=== PATIENT | male | born 1985 | race Caucasian/White ===

== ENCOUNTER 2020-12-09 17:09 | Emergency (ER) | payer SELFPAY ==
--- OUTSIDE RECORDS SUMMARY | 2020-12-09 17:13 | XMS REPORT | Continuity of Care Document ---
:1985 Author Organization [facility] t Address [address] [place] [address] Care Team Providers Name Role Phone Jarvis Ornelas Attending Clinician Olivia Lutz Attending Clinician Problems This patient has no known problems. Allergies, Adverse Reactions, Alerts This patient has no known allergies or adverse reactions. Medications This patient has no known medications. Procedures This patient has no known procedures. Encounters Start End Encounter Admission Attending Care Care Encounter Source Date/Time Date/Time Type Type Clinicians Facility Department ID 2020-12-04 2020-12-04 Emergency Jessica [facility] [id number] 13:39:00 16:03:00 Jose Turner [id number] [place] [id number] [place] [id number] 2020-06-23 2020-06-24 Emergency Kiesha Dunham [facility] [id number] 18:25:00 06:20:00 Olivia Turner [id number] [place] [id number] [place] [phone] [id number] Results This patient has no known results.
--- NOTE | 2020-12-09 18:31 | RAD REPORT ---
EXAM DESCRIPTION: RAD - Wrist Left 3 View - 12/09/2020 5:50 pm CLINICAL HISTORY: PAIN, wrist pain COMPARISON: No comparisons FINDINGS: Distal radius fracture is present. This coronal oblique fracture plane involves the radial styloid and articular surface. The ventral aspect of the fracture fragment is displaced ventrally 6 mm. No ulna fracture. Carpal bones are normally positioned without fracture. Soft tissue swelling is present around the wrist joint. No periosteal reaction. No pathologic change. No foreign body identif ied. IMPRESSION: Distal left radius fracture as detailed with 6 mm displacement of the ventral fracture f ragment.
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
[2020-12-09 21:06] VITALS: BP 142/108; TEMP 99; O2SAT 98
== END 2020-12-09 20:20 | disposition left against medical advice (07) ==
LOC: ER 17:09
DX: Z53.21 Procedure and treatment not carried out due to patient leaving prior to being seen by health care provider (principal)
CPT/HCPCS: 99282

== ENCOUNTER 2022-07-15 04:51 | Emergency (ER) | payer SELFPAY ==
--- OUTSIDE RECORDS SUMMARY | 2022-07-15 04:55 | XMS REPORT | Continuity of Care Document ---
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 Value Reference Range Interpretation Comments ALCOHOL (test code = <10 mg/dL 9431987510) LUDMILA (test code = LUDMILA) <10 Tqzlfvff75-129 Toxic>100 Depression of ANTHROPOLOGY PROFESSOR>400 Fatalities Reported [facility] CenterCREATINE [id number] 02:26:00 Test Item Value Reference Range Interpretation Comments CK (test code = 4970603226) 979 U/L 33-194 H Lab Interpretation (test code = Abnormal 77962-4) [facility] CenterCOMP. METABOLIC PANEL (20423)2020-06-24 02:18:00 Test Item Value Reference Range Interpretation Comments NA (test code = 138 mmol/L 135-145 5942268818) K (test code = 3.6 mmol/L 3.5-5 8828563543) CL (test code = 104 mmol/L 98-108 3417880631) CO2 TOTAL (test code = 23 mmol/L 23-31 5393997176) AGAP (test code = 2-16 8694675529) BUN (test code = 12 mg/dL 7-23 2176264245) GLUCOSE (test code = 88 mg/dL 70-110 4612111539) CREATININE (test code = 0.71 mg/dL 0.6-1.25 8120918188) TOTAL BILI (test code = 0.9 mg/dL 0.1-1.9 3767314504) CALCIUM (test code = 9.2 mg/dL 8.6-10.6 5343035482) T PROTEIN (test code = 7.2 g/dL 6.3-8.2 5325758537) ALBUMIN (test code = 4.6 g/dL 3.5-5 7689178699) ALK PHOS (test code = 95 U/L 34-122 8827958216) ALTv (test code = 41 U/L 5-50 1742-6) AST(SGOT) (test code = 51 U/L 13-40 H 3924532588) eGFR Calculation mL/min/1.73m2 (Non-) (test code = 5537067234) eGFR Calculation mL/min/1.73m2 () (test code = 9840208276) LUDMILA (test code = LUDMILA) Association of Glomerular Filtration Rate (GFR) and Staging of Kidney Disease* + --+ --+ ------+| GFR (mL/min/1.73 m2) ?| With Kidney Damage ?| ?Without Kidney Damage+ --------+ --------+ +| ?>90 ?| ?Stage one ?| ? Normal ?+ ---+ ---+ -------+| ?60-89 ?| ?Stage two ?| ? Decreased GFR ? + --+ --+ ------+| ?30-59 ?| ?Stage three ?| ? Stage three ? + --+ --+ ------+| ?15-29 ?| ?Stage four ? | ? Stage four ?+ ---+ ---+ -------+| ?<15 (or dialysis) ? ?| ?Stage five ? | ? Stage five ?+ ---+ ---+ -------+ *Each stage assumes the associated GFR level has been in effect for at least three months. ?Stages 1 to 5, with or without kidney disease, indicate chronic kidney disease. Notes: Determination of stages one and two (with eGFR >59mL/min/1.73 m2) requires estimation of kidney damage for at least three months as defined by structural or functional abnormalities of the kidney, manifested by either:Pathological abnormalities or Markers of kidney damage (including abnormalities in the composition of the blood or urine or abnormalities in imaging tests). Lab Interpretation Abnormal (test code = 16266-8) [facility] WITH [id number] 01:12:00 Test Item Value Reference Range Interpretation Comments WBC (test code = See_Comment [Automated 4390-2) message] The sy stem which generated this result transmitted reference range : 4.20 - 10.70 10*3/?L. The reference range was not used to interpret this result as normal/abnormal . RBC (test code = See_Comment L [Automated 789-8) message] The sy stem which generated this result transmitted reference range : 4.26 - 5.52 10*6/?L. The reference range was not used to interpret this result as normal/abnormal . HGB (test code = 12.7 g/dL 12.2-16.4 718-7) HCT (test code = 36.2 % 38.4-49.3 L 4544-3) MCV (test code = 91.0 fL 81.7-95.6 787-2) MCH (test code = 31.9 pg 26.1-32.7 785-6) MCHC (test code = 35.1 g/dL 31.2-35 H 786-4) RDW-SD (test code = 42.1 fL 38.5-51.6 35443-4) RDW-CV (test code = 12.7 % 12.1-15.4 788-0) PLT (test code = See_Comment [Automated 777-3) message] The sy stem which generated this result transmitted reference range : 150 - 328 10*3/ ?L. The reference r brianna was not used to interpret this result as normal/abnormal . MPV (test code = 9.8 fL 9.8-13 14127-6) NRBC/100 WBC (test See_Comment [Automat ed code = 0874100493) message] The system which generated this result transmitted reference range : 0.0 - 10.0 /100 WBCs. The refer ence range was not u sed to interpret th is result as normal/abnormal . NRBC x10^3 (test code <0.01 See_Comment [Auto mated = 4971960098) message] The s ystem which generated this result transmitted reference range : 10*3/?L. The reference range was not used to interpret this result as normal/abnormal . GRAN MAT (NEUT) % 68.3 % (test code = 770-8) IMM GRAN % (test code 0.10 % = 6695016383) LYMPH % (test code = 22.0 % 736-9) MONO % (test code = 7.8 % 5905-5) EOS % (test code = 1.4 % 713-8) BASO % (test code = 0.4 % 706-2) GRAN MAT x10^3(ANC) 5.25 10*3/uL 1.99-6.95 (test code = 5750504028) IMM GRAN x10^3 (test <0.03 0-0.06 code = 4695152958) LYMPH x10^3 (test code 1.69 10*3/uL 1.09-3.23 = 731-0) MONO x10^3 (test code 0.60 10*3/uL 0.36-1.02 = 742-7) EOS x10^3 (test code = 0.11 10*3/uL 0.06-0.53 711-2) BASO x10^3 (test code 0.03 10*3/uL 0.01-0.09 = 704-7) Lab Interpretation Abnormal (test code = 08727-8) [facility]
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
[2022-07-15] MEDS ORDERED: IBUPROFEN 400 MG TAB ONE (05:55)
[2022-07-15] MEDS ORDERED: AMOX/K CLAV 875 MG TAB ONE (05:55)
== END 2022-07-15 06:08 | disposition home or self-care (01) ==
LOC: ER 04:51
DX: L08.9 Local infection of the skin and subcutaneous tissue, unspecified (principal)
CPT/HCPCS: 99283